=== PATIENT | female | born 1995 | race Caucasian/White ===

== ENCOUNTER 2017-05-13 09:58 | Emergency (ER) | payer OTHER ==
[2017-05-13 10:12] VITALS: RESP 18
--- NOTE | 2017-05-13 10:47 | ED ---
General Adult HPI - General Chief complaint: ENT Stated complaint: SORE THROAT Time Seen by Provider: 05/13/17 10:27 Source: patient, RN notes reviewed Mode of arrival: ambulatory Limitations: no limitations - History of Present Illness Initial comments: Patient 21-year-old female who presents emergency room today with chief complaint of a sore throat 2 weeks. She does admit that symptoms have improved but she still does not have her normal voice. She denies any difficulty swallowing. She denies any other complaints or associated symptoms at this time. Patient denies any recent fever, chills, shortness of breath, chest pain, back pain, abdominal pain, nausea or vomiting, numbness or tingling , dysuria or hematuria, constipation or diarrhea, headaches or visual changes, or any other complaints. - Related Data Previous Rx's Medication Instructions Recorded Azithromycin [Zithromax Z-pack] 0 mg PO DIRECTED #6 tab 05/13/17 Allergies Allergy/AdvReac Type Severity Reaction Status Date / Time amoxicillin Allergy Unknown Verified 05/13/17 10:24 Review of Systems ROS Statement: Those systems with pertinent positive or pertinent negative responses have been documented in the HPI. ROS Other: All systems not noted in ROS Statement are negative. Past Medical History Past Medical History: No Reported History History of Any Multi-Drug Resistant Organisms: MRSA Date of last positivie culture/infection: 2008 MDRO Source:: LEG,ARM,CHEEK Additional Past Surgical History / Comment(s): skull Past Psychological History: No Psychological Hx Reported Smoking Status: Never smoker Past Alcohol Use History: None Reported Past Drug Use History: None Reported General Exam - General Exam Comments Initial Comments: General: The patient is awake and alert, in no distress, and does not appear acutely ill. Eye: Pupils are equal, round and reactive to light, extra-ocular movements are intact. No nystagmus. There is normal conjunctiva bilaterally. No signs of icterus. Ears, nose, mouth and throat: There are moist mucous membranes and no oral lesions. Mild redness to the posterior pharynx. Positive exudate on the left. Neck: The neck is supple, there is no tenderness or JVD. Cardiovascular: There is a regular rate and rhythm. No murmur, rub or gallop is appreciated. Respiratory: Lungs are clear to auscultation, respirations are non-labored, breath sounds are equal. No wheezes, stridor, rales, or rhonchi. Gastrointestinal: Soft, non-distended, non-tender abdomen without masses or organomegaly noted. There is no rebound or guarding present. No CVA tenderness. Bowel sounds are unremarkable. Musculoskeletal: Normal ROM, no tenderness. Strength 5/5. Sensation intact. Pulses equal bilaterally 2+. Neurological: A&O x 3. CN II-XII intact, There are no obvious motor or sensory deficits. Coordination appears grossly intact. Speech is normal. Skin: Skin is warm and dry and no rashes or lesions are noted. Psychiatric: Cooperative, appropriate mood & affect, normal judgment. Limitations: no limitations Course Vital Signs 05/13/17 10:08 Temperature 98.0 F Pulse Rate 70 Respiratory 18 Rate Blood Pressure 141/78 O2 Sat by Pulse 99 Oximetry Medical Decision Making - Medical Decision Making Strep test reviewed and is positive patient will be started on antibiotics of azithromycin due to amoxicillin ALLERGY. - Lab Data Lab Results 05/13/17 Range/Units 10:47 Group A Strep Rapid Positive A (Negative) Disposition Clinical Impression: Strep throat Disposition: HOME SELF-CARE Condition: Good Instructions: Strep Throat (ED) Additional Instructions: Please use medication as discussed. Please follow-up with family doctor in the next 2 days of symptoms have not improved. Please return to emergency room if the symptoms increase or worsen or for any other concerns. Prescriptions: Azithromycin [Zithromax Z-pack] 0 mg PO DIRECTED #6 tab Referrals: None,Stated [REFERRING] - 1-2 days Time of Disposition: 11:35
[2017-05-13 11:41] VITALS: BP 125/66; PULSE 55; TEMP 97.9
== END 2017-05-13 11:36 | disposition home or self-care (01) ==
LOC: EC 09:58
DX: J02.0 Streptococcal pharyngitis (principal); Z88.0 Allergy status to penicillin
CPT/HCPCS: 87430; 99283

== ENCOUNTER 2017-07-12 05:47 | Emergency (ER) | payer OTHER ==
[2017-07-12 06:00] VITALS: PULSE 59; TEMP 98.4
--- NOTE | 2017-07-12 07:25 | ED ---
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 Some sinus congestion no sore throat no earaches no cough. No nausea no vomiting no neck or back pain no blurred vision. She states she normally does not get headaches. Normally does not get sinus infections. MD Complaint: headache, other - Related Data Home Medications Medication Instructions Recorded Confirmed Acetaminophen Tab [Tylenol Tab] 1,000 mg PO Q6HR PRN 07/12/17 07/12/17 Ibuprofen [Motrin] 800 mg PO Q6HR PRN 07/12/17 07/12/17 Previous Rx's Medication Instructions Recorded Doxycycline [Vibramycin] 100 mg PO Q12HR #20 capsule 07/12/17 guaiFENesin [Mucinex] 600 mg PO BID #20 tab.er.12h 07/12/17 Allergies Allergy/AdvReac Type Severity Reaction Status Date / Time amoxicillin AdvReac yeast Verified 07/12/17 07:06 infection Review of Systems ROS Statement: Those systems with pertinent positive or pertinent negative responses have been documented in the HPI. ROS Other: All systems not noted in ROS Statement are negative. 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 Date of last positivie culture/infection: 2008 MDRO Source:: LEG,ARM,CHEEK Additional Past Surgical History / Comment(s): skull Past Psychological History: No Psychological Hx Reported Smoking Status: Never smoker Past Alcohol Use History: Occasional Past Drug Use History: Marijuana General Exam - General Exam Comments Initial Comments: This is a well-developed well-nourished awake alert oriented 3 female Limitations: no limitations General appearance: alert, in no apparent distress Head exam: Present: atraumatic, normocephalic, normal inspection Eye exam: Present: normal appearance, PERRL, EOMI. Absent: scleral icterus, conjunctival injection, periorbital swelling ENT exam: Present: mucous membranes moist, TM's normal bilaterally, other ( Boggy swollen nasal mucosa erythema with no overt drainage. There is tenderness to percussion over the frontal and especially right maxillary sinus.) Neck exam: Present: normal inspection. Absent: tenderness, meningismus, lymphadenopathy Respiratory exam: Present: normal lung sounds bilaterally. Absent: respiratory distress, wheezes, rales, rhonchi, stridor Extremities exam: Present: normal inspection, full ROM, normal capillary refill. Absent: tenderness, pedal edema, joint swelling, calf tenderness Back exam: Present: normal inspection Neurological exam: Present: alert, oriented X3, CN II-XII intact Psychiatric exam: Present: normal affect, normal mood Skin exam: Present: warm, dry, intact, normal color. Absent: rash Course Vital Signs 07/12/17 05:56 Temperature 98.4 F Pulse Rate 59 L Respiratory 20 Rate Blood Pressure 131/80 O2 Sat by Pulse 100 Oximetry Medical Decision Making - Medical Decision Making The clinical presentation is consistent with a acute sinusitis maxillary and frontal. Patient will be placed on appropriate medication. She states she gets a yeast infection with amoxicillin to another medication will be determined. Disposition Clinical Impression: Acute frontal sinusitis, Maxillary sinusitis, acute Disposition: HOME SELF-CARE Condition: Good Instructions: Acute Headache (ED), Sinusitis (ED) Prescriptions: Doxycycline [Vibramycin] 100 mg PO Q12HR #20 capsule guaiFENesin [Mucinex] 600 mg PO BID #20 tab.er.12h Referrals: Liborio Bryan Jr, DO [Primary Care Provider] - 1-2 days
[2017-07-12 07:39] VITALS: BP 138/75; RESP 18
== END 2017-07-12 07:37 | disposition home or self-care (01) ==
LOC: EC 05:47
DX: J01.10 Acute frontal sinusitis, unspecified (principal); J01.00 Acute maxillary sinusitis, unspecified; Z87.790 Personal history of (corrected) congenital malformations of face and neck; Z98.890 Other specified postprocedural states; Z86.14 Personal history of Methicillin resistant Staphylococcus aureus infection; Z88.0 Allergy status to penicillin
CPT/HCPCS: 99283

== ENCOUNTER 2018-12-13 13:47 | Emergency (ER) | payer OTHER ==
[2018-12-13 13:51] VITALS: BP 140/79; PULSE 88; RESP 18; TEMP 98.2
[2018-12-13] MEDS ORDERED: diphenhydrAMINE 50 MG/ML 1 ML VIAL IVP STA (14:56)
[2018-12-13] MEDS ORDERED: KETOROLAC 30 MG/ML 1 ML VIAL IVP STA (14:56)
[2018-12-13] MEDS ORDERED: ONDANSETRON 4 MG/2 ML VIAL IVP STA (14:56)
--- NOTE | 2018-12-13 15:12 | ED ---
Headache HPI - General Chief Complaint: Headache Stated Complaint: headaches Time Seen by Provider: 12/13/18 14:29 Source: RN notes reviewed, old records reviewed Mode of arrival: ambulatory Limitations: no limitations - History of Present Illness Initial Comments: 23-year-old female presents referred in today with persistent headache for 2 weeks. Patient states that she's had a history of brain surgeries in the past. 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 Patient states that they will have persistent headaches she was told to come to the emergency department to rule out cerebral edema. Patient states that she has had no vomiting episodes. Her headache seems to change between bilateral frontal lobe. Patient states that she has had no neck pain. She denies any fever or chills. - Related Data Previous Rx's Medication Instructions Recorded Acetaminophen Tab [Tylenol Tab] 500 mg PO Q6H #20 tablet 12/13/18 Fluticasone Propionate [Flonase 1 spray EA NOSTRIL TID #1 bottle 12/13/18 Allergy Relief] Ibuprofen [Motrin] 600 mg PO Q6HR PRN #20 tab 12/13/18 Allergies Allergy/AdvReac Type Severity Reaction Status Date / Time amoxicillin AdvReac yeast Verified 12/13/18 14:44 infection Review of Systems ROS Statement: Those systems with pertinent positive or pertinent negative responses have been documented in the HPI. ROS Other: All systems not noted in ROS Statement are negative. 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 No significant distress. Limitations: no limitations General appearance: alert, in no apparent distress Head exam: Present: atraumatic, normocephalic, normal inspection Eye exam: Present: normal appearance, PERRL, EOMI. Absent: scleral icterus, conjunctival injection, periorbital swelling ENT exam: Present: normal exam, mucous membranes moist Neck exam: Present: normal inspection. Absent: tenderness, meningismus, lymphadenopathy Respiratory exam: Present: normal lung sounds bilaterally. Absent: respiratory distress, wheezes, rales, rhonchi, stridor Cardiovascular Exam: Present: regular rate, normal rhythm, normal heart sounds. Absent: systolic murmur, diastolic murmur, rubs, gallop, clicks GI/Abdominal exam: Present: soft, normal bowel sounds. Absent: distended, tenderness, guarding, rebound, rigid Extremities exam: Present: normal inspection, full ROM, normal capillary refill. Absent: tenderness, pedal edema, joint swelling, calf tenderness Back exam: Present: normal inspection Neurological exam: Present: alert, oriented X3, CN II-XII intact Psychiatric exam: Present: normal affect, normal mood Skin exam: Present: warm, dry, intact, normal color. Absent: rash Course Vital Signs 12/13/18 13:49 Temperature 98.2 F Pulse Rate 88 Respiratory 18 Rate Blood Pressure 140/79 O2 Sat by Pulse 98 Oximetry Medical Decision Making - Medical Decision Making 23 year old female presents with history of 2 weeks of frontal headaches, worse with light, and concern for acute changes due to history of brain surgery as an infant. She has no meningeal signs, afebrile and appears well. Patient has no neuro deficits. Due to persistent headache, CT completed and negative for any acute changes. Patient felt well after migraine cocktail. Discussed patient can use flonase spray, alternate motrin and tylenol. Discussed she should have close follow up with PCP. - Radiology Data Radiology results: report reviewed No acute fracture dislocation evident C-spine. No acute hemorrhage mass effect or midline shift. There is straightening of lordosis which may be due to a sprain. Ill-definition and superior mediastinum. There appears to be nonenlarged lymph nodes however pronation and sent in for any adenopathies recommended nonemergent CT thorax. Disposition Clinical Impression: Headache Disposition: HOME SELF-CARE Condition: Good Instructions: Acute Headache (ED) Additional Instructions: Patient advised of close follow-up with primary care physician. Return to emergency department if any alarming signs or symptoms occur. Prescriptions: Acetaminophen Tab [Tylenol Tab] 500 mg PO Q6H #20 tablet Fluticasone Propionate [Flonase Allergy Relief] 1 spray EA NOSTRIL TID #1 bottle Ibuprofen [Motrin] 600 mg PO Q6HR PRN #20 tab PRN Reason: Pain Is patient prescribed a controlled substance at d/c from ED?: No Referrals: Liborio Bryan Jr, [Primary Care Provider] - 1-2 days Time of Disposition: 16:29
--- NOTE | 2018-12-13 16:05 | CT ---
EXAMINATION TYPE: CT brain meetaine wo con DATE OF EXAM: 12/13/2018 COMPARISON: NONE HISTORY: Right sided neck pain with headache. no known injury CT DLP: 1483.8 mGycm. Automated Exposure Control for Dose Reduction was Utilized. TECHNIQUE: CT scan of the head and cervical spine are performed without contrast. FINDINGS: There is no acute intracranial hemorrhage, mass effect, or midline shift identified. The ventricles and sulci are within normal limits in size. The globes are intact and the visualized sin uses are clear. Make a cisterna magna is incidentally noted. Cervical spine is visualized in its entirety from C1 through upper thoracic levels and demonstrates s atisfactory alignment without evidence of acute fracture or dislocation. Prevertebral soft tissue ap pears within normal limits. The C1-C2 articulation is unremarkable. Spinal canal is limited on CT a nd could be further evaluated with MRI. There is ill-definition of the superior mediastinum and small lymph nodes appear to be present. Altho ugh no discrete adenopathy is seen confirmation with enhanced CT thorax would be recommended. IMPRESSION: 1. There is no acute fracture or dislocation evident in the cervical spine. 2. No acute intracranial hemorrhage, mass effect, or midline shift is seen. 3. Straightening of usual cervical lordosis may relate to muscular sprain/spasm or patient positionin g. 4. Ill-definition of the superior mediastinum given [id number]. There appears to be nonenlarged ly mph nodes, however full evaluation of the mediastinum for any adenopathy is recommended with nonemerg ent CT thorax with contrast.
== END 2018-12-13 16:40 | disposition home or self-care (01) ==
LOC: EC 13:47
DX: R51 Headache (principal); Z86.14 Personal history of Methicillin resistant Staphylococcus aureus infection; Z88.0 Allergy status to penicillin
CPT/HCPCS: 72125; 70450; 99284; 96374; 96375 ×2; J1200; J2405; J1885

== ENCOUNTER 2019-01-02 11:23 | Emergency (ER) | payer OTHER ==
[2019-01-02 11:47] VITALS: RESP 18
[2019-01-02] MEDS ORDERED: IPRATROPIUM-ALBUTEROL 3 ML NEB INHALATION STA (11:58)
[2019-01-02] MEDS ORDERED: predniSONE 20 MG TAB PO STA (11:58)
--- NOTE | 2019-01-02 12:44 | XR ---
EXAMINATION TYPE: XR chest 2V DATE OF EXAM: 01/02/2019 COMPARISON: Chest x-ray October 09, 1998. HISTORY: Congestion and cough per technologist. Chest pain per order. TECHNIQUE: Frontal and lateral views of the chest are obtained. FINDINGS: There is no focal air space opacity, pleural effusion, or pneumothorax seen. The cardiac silhouette size is within normal limits. The osseous structures are intact. IMPRESSION: No suspicious acute cardiopulmonary process.
--- NOTE | 2019-01-02 12:57 | ED ---
URI HPI - General Chief Complaint: Upper Respiratory Infection Stated Complaint: SOB, cough Time Seen by Provider: 01/02/19 11:51 Source: patient Mode of arrival: ambulatory Limitations: no limitations - History of Present Illness Initial Comments: 22-year-old female denies past medical history presenting today for chief complaint of cough sore throat and chest cold 5 days. Patient states that she has had a cough congestion and fever, that began about 5 days ago, she states her fever has since subsided. She states she feels as though her cold settled in her chest feels tight with deep inspiration. Denies chest pain, dyspnea despite exertion. Patient states that she is not short of breath but just feels tight with deep inspiration, denies tightness and absence of inspiration. Patient states that 2 days ago she lost her voice, she doesn't difficulty swallowing or breathing. Patient does admit to mild wheeze. Patient denies abdominal pain nausea vomiting diarrhea headache dizziness neck stiffness or any other associated symptoms. Upon arrival patient appears well in stable condition. Vital signs within acceptable limits, patient is afebrile appearing well - Related Data Home Medications Medication Instructions Recorded Confirmed D-Methorphan/PE/Acetaminophen 2 tab PO BID PRN 01/02/19 01/02/19 [Vicks Dayquil Liquicaps] guaiFENesin [Mucinex] 600 mg PO Q12HR PRN 01/02/19 01/02/19 Previous Rx's Medication Instructions Recorded Albuterol Inhaler [Ventolin Hfa 1 - 2 puff INHALATION RT-Q6H PRN 7 01/02/19 Inhaler] Days #1 inhaler Allergies Allergy/AdvReac Type Severity Reaction Status Date / Time amoxicillin AdvReac yeast Verified 01/02/19 12:22 infection Review of Systems ROS Statement: Those systems with pertinent positive or pertinent negative responses have been documented in the HPI. ROS Other: All systems not noted in ROS Statement are negative. 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 Eye: Pupils are equal, round and reactive to light, extra-ocular movements are intact. No nystagmus. There is normal conjunctiva bilaterally. No signs of icterus. Ears, nose, mouth and throat: There are moist mucous membranes and no oral lesions. Oropharynx mildly erythematous, no tonsillar enlargement or exudates lesions. No palpable anterior cervical lymphadenopathy Tympanic Membranes are not erythematous. External auditory canals within normal limits. Neck: The neck is supple, there is no tenderness or JVD. Negative Brudzinski and Kernig. Cardiovascular: There is a regular rate and rhythm. No murmur, rub or gallop is appreciated. Respiratory: Respirations are non-labored, breath sounds are equal. Very mild expiratory wheeze and rhonchi. No findings concerning for consolidation. No retractions or abdominal breathing Gastrointestinal: Soft, non-distended, non-tender abdomen without masses or organomegaly noted. There is no rebound or guarding present. No CVA tenderness. Bowel sounds are unremarkable. Musculoskeletal: Normal ROM, no tenderness. Strength 5/5. Sensation intact. Pulses equal bilaterally 2+. Neurological: A&O x 3. CN II-XII intact, There are no obvious motor or sensory deficits. Coordination appears grossly intact. Speech is normal. Skin: Skin is warm and dry and no rashes or lesions are noted. No lower extremity edema Psychiatric: Cooperative, appropriate mood & affect, normal judgment. Limitations: no limitations Course Vital Signs 01/02/19 01/02/19 01/02/19 11:44 12:21 12:30 Temperature 98.2 F Pulse Rate 74 72 70 Respiratory 18 Rate Blood Pressure 114/79 O2 Sat by Pulse 98 Oximetry 01/02/19 13:16 Temperature 97.5 F L Pulse Rate 64 Respiratory 18 Rate Blood Pressure 148/80 O2 Sat by Pulse 99 Oximetry Procedures - Marlin Protocol (Time Out) Nurse: Lucia Colin Medical Decision Making - Medical Decision Making Patient insulin as a positive. Chest x-ray negative for acute process. Patient given DuoNeb treatment, stated improvement of symptoms. Patient symptoms have been ongoing greater than 72 hours, at this time do not feel Tamiflu is indicated. Patient afebrile. Patient was educated on symptomatic treatment. Patient with his charge with albuterol inhaler for wheezing. Patient was instructed to follow-up with primary care provider in the next 2-3 days. Patient is agreeable plan and discharged. Patient discharged in stable condition appearing well to questions at this time. Return parameters were discussed the patient verbalizes understanding. Patient tolerated by mouth intake and appears hydrated on exam. Case discussed with attending provider Dr. pham briefly prior to discharge of patient. - Lab Data Lab Results 01/02/19 01/02/19 Range/Units 11:58 11:58 Influenza Type A RNA Detected H (Not Detectd) Influenza Type B (PCR) Not Detected (Not Detectd) Group A Strep Rapid Negative (Negative) Disposition Clinical Impression: Influenza A Disposition: HOME SELF-CARE Condition: Good Instructions (If sedation given, give patient instructions): Influenza (ED) Additional Instructions: Please use medication as discussed. Please follow-up with family doctor in the next 2 days. Please return to emergency room if the symptoms increase or worsen or for any other concerns, as discussed. Prescriptions: Albuterol Inhaler [Ventolin Hfa Inhaler] 1 - 2 puff INHALATION RT-Q6H PRN 7 Days #1 inhaler PRN Reason: Wheezing Is patient prescribed a controlled substance at d/c from ED?: No Referrals: Liborio Bryan Jr, DO [Primary Care Provider] - 1-2 days Time of Disposition: 12:57
[2019-01-02 13:17] VITALS: BP 148/80; PULSE 64; TEMP 97.5
== END 2019-01-02 13:18 | disposition home or self-care (01) ==
LOC: EC 11:23
DX: J10.1 Influenza due to other identified influenza virus with other respiratory manifestations (principal); Z88.0 Allergy status to penicillin
CPT/HCPCS: 94640; 87081; 87430; 87502; 71046; 99284; J7512

== ENCOUNTER 2019-07-13 11:14 | Emergency (ER) | payer OTHER ==
[2019-07-13 11:28] VITALS: BP 121/77; PULSE 86; RESP 20; TEMP 98
[2019-07-13] MEDS ORDERED: PROPARACAINE 0.5% OPHTH DROPS 15 ML BTL BOTH EYES STA (11:28)
[2019-07-13] MEDS ORDERED: ERYTHROMYCIN 5 MG/GM OPHTH OINT 3.5 GM TUBE RIGHT EYE STA (11:44)
[2019-07-13] MEDS ORDERED: ERYTHROMYCIN 5 MG/GM OPHTH OINT (PED) 1 GM TUBE RIGHT EYE STA (11:55)
--- NOTE | 2019-07-13 12:05 | ED ---
General Adult HPI - General Chief complaint: Eye Problems Stated complaint: rt eye irritation Time Seen by Provider: 07/13/19 11:27 Source: patient, RN notes reviewed Mode of arrival: ambulatory Limitations: no limitations - History of Present Illness Initial comments: 23-year-old female presents to the emergency department for a chief complaint of right eye irritation 2 days. States her eye feels itchy and looks red. States that when she wakes up in the morning it is crusted and swollen. States she is having some clear drainage from the right eye as well. Denies visual changes. Denies any pain surrounding the eye or pain with movement of the eye. Denies any injuries to the eye. Denies any fevers or chills. Patient has no other complaints at this time including shortness of breath, chest pain, abdominal pain, nausea or vomiting, headache, or visual changes. - Related Data Previous Rx's Medication Instructions Recorded Cephalexin [Keflex] 500 mg PO Q6HR 10 Days cap 07/13/19 Allergies Allergy/AdvReac Type Severity Reaction Status Date / Time amoxicillin AdvReac yeast Verified 07/13/19 11:51 infection Review of Systems ROS Statement: Those systems with pertinent positive or pertinent negative responses have been documented in the HPI. ROS Other: All systems not noted in ROS Statement are negative. 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 Date of last positivie culture/infection: 2008 MDRO Source:: LEG,ARM,CHEEK Additional Past Surgical History / Comment(s): skull Past Psychological History: No Psychological Hx Reported Smoking Status: Never smoker Past Alcohol Use History: Occasional Past Drug Use History: Marijuana General Exam Limitations: no limitations General appearance: alert, in no apparent distress Head exam: Present: atraumatic, normocephalic, normal inspection Eye exam: Present: PERRL, EOMI, conjunctival injection (She has erythema noted of the right conjunctiva with limbic sparing), periorbital swelling (Minimal edema noted of the right upper eyelid. This is non-erythematous, soft, nontender. No evidence of a cellulitis.). Absent: normal appearance, scleral icterus, periorbital tenderness Expanded Eyelids: Normal Inspection: Left, Swelling: Right (minimal, nontender, non erythematous) Pupils: Regular, Round: Bilateral Sclera/Conjunctival: Injection: Right (sparing limbus) Visual acuity (R) = 20/: 15 Visual acuity (L) = 20/: 30 With correction: No IOP (R) in mmH IOP (L) in mmH IOP measured with: Tonopen ENT exam: Present: normal exam, mucous membranes moist Neck exam: Present: normal inspection, full ROM. Absent: tenderness, meningismus, lymphadenopathy Respiratory exam: Present: normal lung sounds bilaterally. Absent: respiratory distress, wheezes, rales, rhonchi, stridor Cardiovascular Exam: Present: regular rate, normal rhythm, normal heart sounds. Absent: systolic murmur, diastolic murmur, rubs, gallop, clicks Neurological exam: Present: alert, oriented X3, CN II-XII intact Psychiatric exam: Present: normal affect, normal mood Course Vital Signs 07/13/19 11:26 Temperature 98.0 F Pulse Rate 86 Respiratory 20 Rate Blood Pressure 121/77 O2 Sat by Pulse 99 Oximetry Medical Decision Making - Medical Decision Making 23-year-old female presents to the emergency department for chief complaint of right eye patient. Patient has had an itchy right eye with some swelling. Sates this worsens when she wakes up. States she has had some crusting of the right eye in the morning. States she has had clear drainage from the right eye. Denies any visual changes. Eye exam patient has erythema noted of the conjunctiva of the right eye with limbic sparing. Minimal edema noted to the upper eyelid without any tenderness or erythema. Eyelid is soft to palpation. This is likely reactive swelling, and unlikely to be cellulitis. No pain with movement of the eye, no concern for an orbital cellulitis. The eye was anesthetized with proparacaine, completely relieve symptoms. It was then vi sualized with 4 seen in a Will lamp, no abrasions evident, negative Mimi sign. At this time patient likely has a conjunctivitis. Treated with erythromycin ointment, and no history of contact use. However patient will be given Keflex given some mild swelling to cover for any early periorbital cellulitis. Discussed follow-up with ophthalmology and primary care. Discussed returning if she has any worsening symptoms which were communicated in depth with patient. She was given the ointment here in the ER, prescription given for oral antibiotic. Disposition Clinical Impression: Conjunctivitis Disposition: HOME SELF-CARE Condition: Good Instructions (If sedation given, give patient instructions): Conjunctivitis (ED) Additional Instructions: Please apply antibiotic ointment 4 times per day for 7 days. Follow-up with primary care and ophthalmology in one to 2 days. If you develop any worsening symptoms such as fevers, pain with movement of the eye, worsening swelling or any other concerning features then return to the emergency department immediately. Prescriptions: Cephalexin [Keflex] 500 mg PO Q6HR 10 Days cap Is patient prescribed a controlled substance at d/c from ED?: No Referrals: Liborio Bryan Jr, DO [Primary Care Provider] - 1-2 days Roderick Aquino MD [STAFF PHYSICIAN] - 1-2 days Time of Disposition: 12:02
== END 2019-07-13 12:14 | disposition home or self-care (01) ==
LOC: EC 11:14
DX: H10.9 Unspecified conjunctivitis (principal); L03.213 Periorbital cellulitis; Z88.0 Allergy status to penicillin; Z86.14 Personal history of Methicillin resistant Staphylococcus aureus infection
CPT/HCPCS: 99283

== ENCOUNTER 2019-12-01 06:04 | Emergency (ER) | payer OTHER ==
[2019-12-01 06:12] VITALS: BP 135/84; PULSE 66; RESP 20; TEMP 97.9
[2019-12-01] MEDS ORDERED: TOBRAMYCIN 0.3% OPHTH DROPS 5 ML BTL BOTH EYES STA (06:18)
--- NOTE | 2019-12-01 06:29 | ED ---
Eye Problem HPI - General Chief complaint: Eye Problems Stated complaint: Poss Conjunctivitis Time Seen by Provider: 12/01/19 06:17 Source: patient, family, RN notes reviewed, old records reviewed Mode of arrival: ambulatory Limitations: no limitations - History of Present Illness Initial comments: Patient is a 23-year-old female, presents emergency department today for evaluation for concern for bilateral conjunctival drainage, irritation for the past 2 days. Patient reports it started after she slipped on a friend's car, and she reportedly noted that the friend changed her baby's diaper on the clot she was sleeping. Patient states that she does not wear contacts or glasses. Denies any significant visual changes. - Related Data Previous Rx's Medication Instructions Recorded Cephalexin [Keflex] 500 mg PO Q6HR 10 Days cap 07/13/19 Tobramycin 0.3% Ophth Soln [Tobrex 1 - 2 drop BOTH EYES Q4H #1 bottle 12/01/19 0.3% Ophth Soln] Allergies Allergy/AdvReac Type Severity Reaction Status Date / Time amoxicillin AdvReac yeast Verified 12/01/19 06:12 infection Review of Systems ROS Statement: Those systems with pertinent positive or pertinent negative responses have been documented in the HPI. ROS Other: All systems not noted in ROS Statement are negative. 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 Some purulent crusting is noted around eyelashes.). Absent: scleral icterus, periorbital swelling ENT exam: Present: normal exam, mucous membranes moist Neck exam: Present: normal inspection. Absent: tenderness, meningismus, lymphadenopathy Respiratory exam: Present: normal lung sounds bilaterally. Absent: respiratory distress, wheezes, rales, rhonchi, stridor Cardiovascular Exam: Present: regular rate, normal rhythm, normal heart sounds. Absent: systolic murmur, diastolic murmur, rubs, gallop, clicks Skin exam: Present: warm, dry, intact, normal color. Absent: rash Course Vital Signs 12/01/19 06:08 Temperature 97.9 F Pulse Rate 66 Respiratory 20 Rate Blood Pressure 135/84 O2 Sat by Pulse 99 Oximetry Medical Decision Making - Medical Decision Making Referrals Presents Emergency Department Today for Temperature Conjunctivitis. Patient Does Have Some Bilateral Conjunctival Injection, Crusting Drainage around the Eye. She Has No Visual Changes. Patient Has No Signs of Corneal Abrasion or Ulceration. This Time Patient Will Be Placed on Tobrex Drops First Her for Conjunctivitis and Advised Close Follow-Up with Primary Care Doctor Ophthalmology If Symptoms Persist. SENSORY AND TO RETURN PARAMETERS WERE DISCUSSED. Disposition Clinical Impression: Conjunctivitis Disposition: HOME SELF-CARE Condition: Good Instructions (If sedation given, give patient instructions): Conjunctivitis (ED) Additional Instructions: Patient advised to use the eyedrops every 4 hours for the first 2 days, then switch to 4 times a day for the remainder of the week. Patient should follow-up with ophthalmology if symptoms continue to persist. Prescriptions: Tobramycin 0.3% Ophth Soln [Tobrex 0.3% Ophth Soln] 1 - 2 drop BOTH EYES Q4H #1 bottle Is patient prescribed a controlled substance at d/c from ED?: No Referrals: Liborio Bryan Jr, DO [Primary Care Provider] - 1-2 days Time of Disposition: 06:28
== END 2019-12-01 06:32 | disposition home or self-care (01) ==
LOC: EC 06:04
DX: H10.9 Unspecified conjunctivitis (principal); Z88.0 Allergy status to penicillin; Z86.14 Personal history of Methicillin resistant Staphylococcus aureus infection; Z87.728 Personal history of other specified (corrected) congenital malformations of nervous system and sense organs; W18.40XA Slipping, tripping and stumbling without falling, unspecified, initial encounter
CPT/HCPCS: 99283

== ENCOUNTER 2020-01-31 05:55 | Emergency (ER) | payer OTHER ==
[2020-01-31 06:06] VITALS: BP 125/84; PULSE 90; RESP 18; TEMP 99.4
--- NOTE | 2020-01-31 06:16 | ED ---
URI HPI - General Chief Complaint: Upper Respiratory Infection Stated Complaint: chest pain Time Seen by Provider: 01/31/20 06:07 Source: patient, RN notes reviewed Mode of arrival: ambulatory Limitations: no limitations - History of Present Illness Initial Comments: 24-year-old female presents emergency Department chief complaint of fever cough congestion body aches. Patient states symptoms started Da 5 days ago. Patient's niece is positive with influenza B. Patient states that she has a slightly productive cough and nasal congestion, sore throat and ear pain and body aches. Patient states that she's been taking [id number] cough and cold medications she does admit to fever. Patient has tried some [id number]-[id number] cough and cold medications no relief. Patient had intermittent fevers. - Related Data Previous Rx's Medication Instructions Recorded Cephalexin [Keflex] 500 mg PO Q6HR 10 Days cap 07/13/19 Tobramycin 0.3% Ophth Soln [Tobrex 1 - 2 drop BOTH EYES Q4H #1 bottle 12/01/19 0.3% Ophth Soln] Azithromycin [Zithromax Z-pack] 0 mg PO DIRECTED #1 pack 01/31/20 Allergies Allergy/AdvReac Type Severity Reaction Status Date / Time amoxicillin AdvReac yeast Verified 01/31/20 06:06 infection Review of Systems ROS Statement: Those systems with pertinent positive or pertinent negative responses have been documented in the HPI. ROS Other: All systems not noted in ROS Statement are negative. 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 Absent: scleral icterus, conjunctival injection, periorbital swelling ENT exam: Present: normal exam, normal oropharynx, mucous membranes moist, TM's normal bilaterally Neck exam: Present: normal inspection, full ROM. Absent: tenderness, meningismus, lymphadenopathy Respiratory exam: Present: normal lung sounds bilaterally. Absent: respiratory distress, wheezes, rales, rhonchi, stridor Cardiovascular Exam: Present: regular rate, normal rhythm, normal heart sounds. Absent: systolic murmur, diastolic murmur, rubs, gallop, clicks Neurological exam: Present: alert Skin exam: Present: warm, dry, intact, normal color. Absent: rash Course Vital Signs 01/31/20 06:01 Temperature 99.4 F Pulse Rate 90 Respiratory 18 Rate Blood Pressure 125/84 O2 Sat by Pulse 97 Oximetry Medical Decision Making - Medical Decision Making 24-year-old female presents emergency department for fever cough congestion. Patient's influenza B positive. Patient also has evidence of right upper lobe pneumonia. Patient was started on azithromycin she is advised that she needs to have recheck within the next 48 hours return for any change symptoms. Patient agrees this plan return parameters discussed. - Lab Data Lab Results 01/31/20 Range/Units 06:15 Influenza Type A RNA Not Detected (Not Detectd) Influenza Type B (PCR) Detected H (Not Detectd) Disposition Clinical Impression: Influenza, Pneumonia Disposition: HOME SELF-CARE Condition: Stable Instructions (If sedation given, give patient instructions): Pneumonia (ED), Influenza (ED) Additional Instructions: Please return to the Emergency Department if symptoms worsen or any other concerns. Prescriptions: Azithromycin [Zithromax Z-pack] 0 mg PO DIRECTED #1 pack Is patient prescribed a controlled substance at d/c from ED?: No Referrals: None,Stated [Primary Care Provider] - 1-2 days Time of Disposition: 06:40
--- NOTE | 2020-01-31 06:34 | XR ---
EXAMINATION TYPE: XR chest 2V DATE OF EXAM: 01/31/2020 COMPARISON: 01/02/2019 HISTORY: Cough TECHNIQUE: FINDINGS: There is a 4 cm patch of infiltrate and atelectasis right midlung. The other lung shaikh ar e clear. Heart and mediastinum are normal. There are no hilar masses. IMPRESSION: There is new focal infiltrate and atelectasis right upper lobe compared to old exam. Norm al heart.
== END 2020-01-31 07:01 | disposition home or self-care (01) ==
LOC: EC 05:55
DX: J10.00 Influenza due to other identified influenza virus with unspecified type of pneumonia (principal); Z86.14 Personal history of Methicillin resistant Staphylococcus aureus infection; Z88.0 Allergy status to penicillin
CPT/HCPCS: 71046; 87502; 99283

== ENCOUNTER 2020-08-10 15:22 | Emergency (ER) | payer OTHER ==
[2020-08-10 15:45] VITALS: BP 123/80; PULSE 74; RESP 16; TEMP 98.3
--- NOTE | 2020-08-10 15:55 | ED ---
General Adult HPI - General Chief complaint: Recheck/Abnormal Lab/Rx Stated complaint: Wanting COVID test Time Seen by Provider: 08/10/20 15:47 Source: patient, RN notes reviewed, old records reviewed Mode of arrival: ambulatory Limitations: no limitations - History of Present Illness Initial comments: 24-year-old female presents emergency department today for evaluation requesting and Covid 19 swab. She states she has no symptoms of Cob[place] 19 and shortness of breath fever chills body aches or sore throat. She denies any abdominal pain changes in urination or stools. 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 Patient states that she's had no previous testing. She does not work in healthcare clinic. She has had no known exposure to Covid 19 contacts. - Related Data Previous Rx's Medication Instructions Recorded Cephalexin [Keflex] 500 mg PO Q6HR 10 Days cap 07/13/19 Tobramycin 0.3% Ophth Soln [Tobrex 1 - 2 drop BOTH EYES Q4H #1 bottle 12/01/19 0.3% Ophth Soln] Azithromycin [Zithromax Z-pack] 0 mg PO DIRECTED #1 pack 01/31/20 Allergies Allergy/AdvReac Type Severity Reaction Status Date / Time amoxicillin AdvReac yeast Verified 08/10/20 15:45 infection Review of Systems ROS Statement: Those systems with pertinent positive or pertinent negative responses have been documented in the HPI. ROS Other: All systems not noted in ROS Statement are negative. 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 Alert and oriented 3. Patient appears in no significant distress. Limitations: no limitations General appearance: alert, in no apparent distress Head exam: Present: atraumatic, normocephalic, normal inspection Eye exam: Present: normal appearance, PERRL, EOMI. Absent: scleral icterus, conjunctival injection, periorbital swelling ENT exam: Present: normal oropharynx Neck exam: Present: normal inspection Respiratory exam: Present: normal lung sounds bilaterally Cardiovascular Exam: Present: regular rate, normal rhythm, normal heart sounds. 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 Patient states she has no symptoms at this time. He does not work in healthcare setting. Patient is given Coban 19 swab. Discussed the results may result in one to 3 days. Advised follow-up if there is any symptoms. Disposition Clinical Impression: Encounter for screening laboratory testing for COVID-19 virus Disposition: HOME SELF-CARE Condition: Good Additional Instructions: Results further close follow-up should be available in the next 1-3 days. Patient advised to return to the ER if there is any alarming signs or symptoms occur. Is patient prescribed a controlled substance at d/c from ED?: No Referrals: Liborio Byran Jr, DO [Primary Care Provider] - 1-2 days Time of Disposition: 15:53
== END 2020-08-10 16:05 | disposition home or self-care (01) ==
LOC: EC 15:22
DX: Z03.818 Encounter for observation for suspected exposure to other biological agents ruled out (principal); Z88.0 Allergy status to penicillin; Z86.73 Personal history of transient ischemic attack (TIA), and cerebral infarction without residual deficits
CPT/HCPCS: 99284; U0003

== ENCOUNTER 2021-03-08 15:59 | Emergency (ER) | payer OTHER ==
[2021-03-08 16:32] VITALS: BP 140/80; PULSE 73; RESP 18; TEMP 98.3
--- NOTE | 2021-03-08 16:33 | ED ---
General Adult HPI - General Stated complaint: Cold, possible covid Source: RN notes reviewed - History of Present Illness Initial comments: 25-year-old female presents to the emergency room a coronavirus test. Patient states that she has cold symptoms and wants to check and see if it is coronavirus. States she has had a stuffy nose. She also has a tickle in her throat. She also had diarrhea today. Symptoms started yesterday. No fevers. No shortness of breath. No chest pain.Patient has no other complaints at this time including shortness of breath, chest pain, abdominal pain, nausea or vomiting, headache, or visual changes. - Related Data Previous Rx's Medication Instructions Recorded Cephalexin [Keflex] 500 mg PO Q6HR 10 Days cap 07/13/19 Tobramycin 0.3% Ophth Soln [Tobrex 1 - 2 drop BOTH EYES Q4H #1 bottle 12/01/19 0.3% Ophth Soln] Azithromycin [Zithromax Z-pack (6 0 mg PO DIRECTED #1 pack 01/31/20 tabs)] Allergies Allergy/AdvReac Type Severity Reaction Status Date / Time amoxicillin AdvReac yeast Verified 03/08/21 16:32 infection purple dye Allergy Rash/Hives Uncoded 03/08/21 16:33 Review of Systems ROS Statement: Those systems with pertinent positive or pertinent negative responses have been documented in the HPI. ROS Other: All systems not noted in ROS Statement are negative. 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 Absent: scleral icterus, conjunctival injection, periorbital swelling ENT exam: Present: normal exam, normal oropharynx (Uvula midline, no tonsillar exudates bilaterally), mucous membranes moist Neck exam: Present: normal inspection, full ROM. Absent: tenderness Respiratory exam: Present: normal lung sounds bilaterally. Absent: respiratory distress, wheezes Cardiovascular Exam: Present: regular rate, normal rhythm, normal heart sounds GI/Abdominal exam: Present: soft, normal bowel sounds. Absent: distended, tenderness, guarding, rebound, rigid Course Vital Signs 03/08/21 16:29 Temperature 98.3 F Pulse Rate 73 Respiratory 18 Rate Blood Pressure 140/80 O2 Sat by Pulse 99 Oximetry Medical Decision Making - Medical Decision Making Vitals are stable. Patient is 99% on room air. HPI and physical exam as documented. No respirator distress. Patient is well-appearing. Coronavirus is detected. I did have a lengthy conversation with patient about antibody infusion. We discussed decreases morbidity and mortality as well as hospitalizations. We also discussed the emergency authorization aspect of this medication as well as possible side effects. At this time patient declines. States she does not agree feel cutter beginning this. Patient is requesting discharge. I did recommend to return for any worsening symptoms. - Lab Data Lab Results 03/08/21 Range/Units 16:38 Coronavirus (PCR) Detected A (Not Detectd) Disposition Clinical Impression: COVID-19 Disposition: HOME SELF-CARE Condition: Good Instructions (If sedation given, give patient instructions): Coronavirus Disease 2019 (COVID-19) Additional Instructions: Please take Motrin and Tylenol for pain or fever. Take [id number] cold and flu medications. Follow-up with your doctor in one to 2 days. Return to the emergency room for any worsening symptoms or if you start to develop shortness of breath. Is patient prescribed a controlled substance at d/c from ED?: No Referrals: Liborio Bryan Jr, DO [Primary Care Provider] - 1-2 days Time of Disposition: 17:13
== END 2021-03-08 17:33 | disposition home or self-care (01) ==
LOC: EC 15:59
DX: U07.1 COVID-19 (principal); F12.90 Cannabis use, unspecified, uncomplicated
CPT/HCPCS: 87635; 99284

== ENCOUNTER 2021-09-09 23:26 | Emergency (ER) | payer OTHER ==
[2021-09-09 23:48] VITALS: RESP 18; TEMP 98
[2021-09-10] MEDS ORDERED: diazePAM 5 MG TAB PO STA (00:12)
[2021-09-10] MEDS ORDERED: MORPHINE SULFATE 2 MG/ML SYRINGE IM STA ×2 (00:12→01:50)
--- NOTE | 2021-09-10 01:00 | ED ---
Back Pain HPI - General Chief Complaint: Back Pain/Injury Stated Complaint: Back Pain Time Seen by Provider: 09/09/21 23:41 Source: patient, EMS, RN notes reviewed Mode of arrival: EMS Limitations: no limitations - History of Present Illness Initial Comments: Patient is a 25-year-old female presenting to emergency Department via EMS with complaints of right-sided sciatica pain that increased tonight. Patient states she's been dealing with the sciatica discomfort for the past 1-2 months. Tonight she was stretching and made the pain worse. She states she is unable to get comfortable. She did not take anything for the pain. She did receive 15 mg of Toradol the EMS prior to arrival. She states when she is laying flat is 1 feels the best. She has not seen her doctor or orthopedics for this. She denies any history of back injuries or surgeries. She denies any numbness and tingling, no bowel or bladder incontinence, no saddle paresthesias. She states she does have pain running down her right leg. She is able to ambulate. She denies being . She has no further complaints. - Related Data Previous Rx's Medication Instructions Recorded Cephalexin [Keflex] 500 mg PO Q6HR 10 Days cap 07/13/19 Tobramycin 0.3% Ophth Soln [Tobrex 1 - 2 drop BOTH EYES Q4H #1 bottle 12/01/19 0.3% Ophth Soln] Azithromycin [Zithromax Z-pack (6 0 mg PO DIRECTED #1 pack 01/31/20 tabs)] Cyclobenzaprine [Flexeril] 5 mg PO TID PRN #15 tablet 09/10/21 predniSONE [Deltasone] 20 mg PO BID 5 Days #10 tab 09/10/21 Allergies Allergy/AdvReac Type Severity Reaction Status Date / Time amoxicillin AdvReac yeast Verified 03/08/21 16:32 infection purple dye Allergy Rash/Hives Uncoded 03/08/21 16:33 Review of Systems ROS Statement: Those systems with pertinent positive or pertinent negative responses have been documented in the HPI. ROS Other: All systems not noted in ROS Statement are negative. 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 Patient is nontoxic and in mild distress. HEAD: Atraumatic, normocephalic. EYES: Pupils equal round and reactive to light, extraocular movements intact, sclera anicteric, conjunctiva are normal. Eyelids were unremarkable. ENT: Moist mucous membranes. NECK: Normal range of motion, supple without lymphadenopathy or JVD. LUNGS: Unlabored respirations. Breath sounds clear to auscultation bilaterally and equal. No wheezes rales or rhonchi. HEART: Regular rate and rhythm without murmurs, rubs or gallops. ABDOMEN: Soft, nontender, normoactive bowel sounds. No guarding, no rebound. No masses appreciated. MUSCULOSKELETAL: Normal extremities with adequate strength and normal range of motion, no pitting or edema. No clubbing or cyanosis. Tender with palpation of the right lower back, right gluteal. Increased pain with straight leg raise. NEUROLOGICAL: Patient is alert and oriented x 3. Normal speech, normal gait. PSYCH: Normal mood, normal affect. SKIN: Warm, Dry, normal turgor, no rashes or lesions noted. Limitations: no limitations Course Vital Signs 09/09/21 23:43 Temperature 98.0 F Pulse Rate 61 Respiratory 18 Rate Blood Pressure 134/82 O2 Sat by Pulse 99 Oximetry Medical Decision Making - Medical Decision Making Patient is a 25-year-old female presenting here via EMS with complaints of right-sided sciatica pain. Been ongoing for 1-2 months. No alarming symptoms on exam, his exam is consistent with right-sided sciatica pain. She was given pain control here in the ER, does report some mild improvement. I recommended following up with orthopedic. I will give her a short course of muscle relaxers and trial of steroids. She is agreeable to this. Return parameters were discussed with her and she verbalized understanding. Disposition Clinical Impression: Right sciatic nerve pain Disposition: HOME SELF-CARE Condition: Stable Instructions (If sedation given, give patient instructions): Sciatica (ED) Additional Instructions: Please return to the Emergency Department if symptoms worsen or any other concerns. Trial of muscle relaxers/steroids for increasing pain. Recommended Tylenol for any discomfort. Heat and/or Ice. If symptoms persist, recommend following up with orthopedic doctor as discussed. Prescriptions: predniSONE [Deltasone] 20 mg PO BID 5 Days #10 tab Cyclobenzaprine [Flexeril] 5 mg PO TID PRN #15 tablet PRN Reason: Muscle Spasm Is patient prescribed a controlled substance at d/c from ED?: No Referrals: Liborio Bryan Jr, DO [Primary Care Provider] - 1-2 days Jarvis Noble MD [STAFF PHYSICIAN] - 1-2 days Time of Disposition: 01:00
[2021-09-10 02:06] VITALS: BP 142/85; PULSE 65
== END 2021-09-10 02:06 | disposition home or self-care (01) ==
LOC: EC 23:26
DX: M54.41 Lumbago with sciatica, right side (principal); F12.90 Cannabis use, unspecified, uncomplicated; Z88.0 Allergy status to penicillin
CPT/HCPCS: 99283 ×2; 96372 ×3; J2270

== ENCOUNTER → 2022-09-03 | Outpatient (CLI) | payer OTHER ==
--- NOTE | 2022-09-03 14:12 | USB ---
Reason for Exam: Clinical finding. Technique: Method: Whole Breast Handheld. Findings: The whole breast of the right breast, the axilla of the right breast and the retroareolar of the right breast were scanned. A complete US of all four quadrants of the right breast and retro-areolar region were reviewed. There is a well circumscribed mass blends in with the surrounding breast tissue at 9:00 8 cm from the nipple. This measures 2.2 x 0.9 x 2.1 cm. No internal color flow identified. This is most consistent with a lipoma. Additional benign appearing lymph node at 10:00 12 cm from the nipple with central fatty hilum. Overall Assessment: Benign, BI-RAD 2 Management: Screening Mammogram of both breasts at age 39. A clinical breast exam by your physician is recommended on an annual basis and results should be correlated with mammographic findings. Electronically signed and approved by: Jay Murry D.O.
== END | disposition home or self-care (01) ==
LOC: RADMAMWWP 12:58
PROVIDERS: ATTEND Family Medicine
DX: N63.10 Unspecified lump in the right breast, unspecified quadrant (principal)

== ENCOUNTER 2023-06-07 13:53 | Emergency (ER) | payer OTHER ==
[2023-06-07 15:08] LABS: Basophils % (A) 0 %; Eosinophils # (A) 0.1 k/uL (0-0.7); Eosinophils % (A) 1 %; HCT 36.7 % (34.0-46.0); HGB 12.5 gm/dL (11.4-16.0); Lymphocytes # (A) 1.9 k/uL (1.0-4.8); Lymphocytes % (A) 22 %; MCH 29.1 pg (25.0-35.0); MCHC 34.1 g/dL (31.0-37.0); MCV 85.4 fL (80.0-100.0); Mean Platelet Volume 6.8; Monocytes # (A) 0.5 k/uL (0-1.0); Monocytes % (A) 5 %; Neutrophils % (A) 70 %; Platelet Count 355 k/uL (150-450); RBC 4.29 m/uL (3.80-5.40); RDW 13.5 % (11.5-15.5); WBC 8.5 k/uL (3.8-10.6)
[2023-06-07 15:17] LABS: ALT 32 U/L (4-34); AST 36 U/L (14-36); African American GFR (CKD) >90 (>60 ml/min/1.73 sqM); Albumin 4.3 g/dL (3.5-5.0); Alkaline Phosphatase 70 U/L (38-126); Anion Gap 8 mmol/L; Blood Urea Nitrogen 7 mg/dL (7-17); Calcium 9.5 mg/dL (8.4-10.2); Carbon Dioxide 20 mmol/L (22-30); Chloride 110 mmol/L (98-107); Glucose 95 mg/dL (74-99); Non-African American GFR(CKD) >90 (>60 ml/min/1.73 sqM); Potassium 3.5 mmol/L (3.5-5.1); Sodium 138 mmol/L (137-145); Total Bilirubin 0.6 mg/dL (0.2-1.3)
--- NOTE | 2023-06-07 15:30 | XR ---
EXAMINATION TYPE: XR chest 2V DATE OF EXAM: 06/07/2023 COMPARISON: 01/31/2020 HISTORY: Chest pain TECHNIQUE: Frontal and lateral views of the chest are obtained. FINDINGS: There is no focal air space opacity. No evidence for pneumothorax. No pleural effusion. The cardiac silhouette size is within normal limits. The osseous structures are grossly intact. IMPRESSION: 1. No acute cardiopulmonary process.
--- NOTE | 2023-06-07 15:31 | XR ---
EXAMINATION TYPE: XR shoulder complete RT DATE OF EXAM: 06/07/2023 CLINICAL HISTORY: pain TECHNIQUE: Three views of the right shoulder are obtained. COMPARISON: None FINDINGS: There is no acute fracture/dislocation evident. The acromioclavicular and glenohumeral milan int spaces appear within normal limits. The visualized ribs are intact and unremarkable. IMPRESSION: 1. There is no acute fracture or dislocation. ICD 10 NO FRACTURE, INITIAL EVALUATION
[2023-06-07] MEDS ORDERED: SODIUM CHLORIDE 0.9% 500 ML 500 ML IV STA (21:38)
[2023-06-07] MEDS ORDERED: LORazepam 2 MG/ML INJ IV STA (21:38)
--- NOTE | 2023-06-07 21:39 | ED ---
SOB HPI - General Chief Complaint: Shortness of Breath Stated Complaint: Chest tightness,sob Time Seen by Provider: 06/07/23 21:06 Source: patient Mode of arrival: ambulatory Limitations: no limitations - History of Present Illness Initial Comments: This patient is a 27-year-old woman presenting to have evaluation of her shortness of breath. The patient noted that she had used an energy drink while she was at work as she was feeling fatigued. Shortly after that she felt like she could not catch her breath and she had some palpitations though those have resolved. The patient denies chest pain, diaphoresis, nausea or vomiting. No fever or chills. No productive cough. No leg pain or swelling MD Complaint: shortness of breath Onset/Timin -: hour(s) Severity: mild Severity scale (1-10): 0 Consistency: now resolved Improves With: nothing Worsens With: nothing Associated Symptoms: denies other symptoms Treatments Prior to Arrival: none - Related Data Home Medications Medication Instructions Recorded Confirmed Glucosamine/Chondro Silvestre A [Cosamin 1 tab PO BID 06/07/23 06/07/23 Ds Tablet] Allergies Allergy/AdvReac Type Severity Reaction Status Date / Time amoxicillin AdvReac yeast Verified 06/07/23 21:21 infection purple dye Allergy Rash/Hives Uncoded 06/07/23 21:21 Review of Systems ROS Statement: Those systems with pertinent positive or pertinent negative responses have been documented in the HPI. ROS Other: All systems not noted in ROS Statement are negative. Constitutional: Denies: fever, chills, weakness ENT: Denies: congestion Respiratory: Reports: dyspnea. Denies: cough, wheezes, hemoptysis Cardiovascular: Reports: palpitations. 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 Absent: scleral icterus, conjunctival injection ENT exam: Present: mucous membranes dry Neck exam: Present: normal inspection Respiratory exam: Present: normal lung sounds bilaterally. Absent: respiratory distress, wheezes, rales, rhonchi, stridor Cardiovascular Exam: Present: regular rate, normal rhythm, normal heart sounds. Absent: systolic murmur, diastolic murmur, rubs, gallop GI/Abdominal exam: Present: soft. Absent: distended, tenderness, guarding, rebound, rigid, mass Extremities exam: Present: normal inspection, normal capillary refill. Absent: pedal edema, calf tenderness Back exam: Present: normal inspection. Absent: CVA tenderness (R), CVA tenderness (L) Neurological exam: Present: alert Skin exam: Present: warm, dry, intact, normal color. Absent: rash Course Vital Signs 06/07/23 06/07/23 06/07/23 14:10 18:37 21:00 Temperature 98.6 F 97.7 F Pulse Rate 77 74 83 Respiratory 22 18 20 Rate Blood Pressure 139/84 129/87 145/93 O2 Sat by Pulse 100 100 100 Oximetry 06/07/23 06/07/23 21:41 22:24 Temperature 98.0 F Pulse Rate 75 Respiratory 20 18 Rate Blood Pressure 138/76 O2 Sat by Pulse 99 Oximetry Medical Decision Making - Medical Decision Making The patient had chest x-ray which I interpreted as being negative for acute infiltrate, congestive heart failure, pneumothorax The patient had a shoulder x-ray which I interpreted as being negative for acute bony injury Was pt. sent in by a medical professional or institution (, PA, [employer], urgent care, hospital, or halfway...) When possible be specific @ -[No] Did you speak to anyone other than the patient for history (EMS, parent, family, police, friend...)? What history was obtained from this source @ -[No] Did you review nursing and triage notes (agree or disagree)? Why? @ -[I reviewed and agree with nursing and triage notes] Were old charts reviewed (outside hosp., previous admission, EMS record, old EKG, old radiological studies, urgent care reports/EKG's, halfway records)? Report findings @ -[No old charts were reviewed] Differential Diagnosis (chest pain, altered mental status, abdominal pain women, abdominal pain men, vaginal bleeding, weakness, fever, dyspnea, syncope, headache, dizziness, GI bleed, back pain, seizure, CVA, palpatations, mental health, musculoskeletal)? @ -[Differential Dyspnea: Coronary syndrome, arrhythmia, tamponade, asthma, COPD, pulmonary embolism, pneumonia, pneumothorax, pulmonary effusion, anaphylaxis, diabetic ketoacidosis, flailed chest, pulmonary contusion, diaphragmatic rupture, anemia, neuromuscular, this is not meant to be an all-inclusive list. EKG interpreted by me (3pts min.). @ -[As above] X-rays interpreted by me (1pt min.). @ -[As above CT interpreted by me (1pt min.). @ -[None done] U/S interpreted by me (1pt. min.). @ -[None done] What testing was considered but not performed or refused? (CT, X-rays, U/S, labs)? Why? @ -[None] What meds were considered but not given or refused? Why? @ -[None] Did you discuss the management of the patient with other professionals (professionals i.e. , PA, [employer], lab, RT, psych nurse, social service assistant, radio program director, teacher, commercial credit officer, watch caser)? Give summary @ -[No] Was smoking cessation discussed for >3mins.? @ -[No] Was critical care preformed (if so, how long)? @ -[No] Were there social determinants of health that impacted care today? How? (Homelessness, low income, unemployed, alcoholism, drug addiction, transportation, low edu. Level, literacy, decrease access to med. care, detention, rehab)? @ -[No] Was there de-escalation of care discussed even if they declined (Discuss DNR or withdrawal of care, Hospice)? DNR status @ -[No] What co-morbidities impacted this encounter? (DM, HTN, Smoking, COPD, CAD, Cancer, CVA, ARF, Chemo, Hep., AIDS, mental health diagnosis, sleep apnea, morbid obesity)? @ -[None] Was patient admitted / discharged? Hospital course, mention meds given and route, prescriptions, significant lab abnormalities, going to OR and other pertinent info. @ -[The patient is seen and evaluated. She is having improvement already related to her symptoms. The workup here is unremarkable and she was feeling better on reevaluation and didn't want to go home. Discussed no further use of sympathomimetics. Discussed appropriate further care and follow-up as well as return parameters Undiagnosed new problem with uncertain prognosis? @ -[No] Drug Therapy requiring intensive monitoring for toxicity (Heparin, Nitro, Insuli n, Cardizem)? @ -[No] Were any procedures done? @ -[No] Diagnosis/symptom? @ -Acute dyspnea, secondary to sympathomimetic use Acute, or Chronic, or Acute on Chronic? @ -[Acute Uncomplicated (without systemic symptoms) or Complicated (systemic symptoms)? @ -[Uncomplicated Side effects of treatment? @ -[No] Exacerbation, Progression, or Severe Exacerbation? @ -[No] Poses a threat to life or bodily function? How? (Chest pain, [place], [place], pneumonia, PE, COPD, DKA, ARF, appy, cholecystitis, CVA, Diverticulitis, Homicidal, Suicidal, threat to staff... and all critical care pts) @ -[No] - Lab Data Result diagrams: 06/07/23 14:13 06/07/23 14:13 Lab Results 06/07/23 06/07/23 06/07/23 Range/Units 14:13 14:13 14:13 WBC 8.5 (3.8-10.6) k/uL RBC 4.29 (3.80-5.40) m/uL Hgb 12.5 (11.4-16.0) gm/dL Hct 36.7 (34.0-46.0) % MCV 85.4 (80.0-100.0) fL MCH 29.1 (25.0-35.0) pg MCHC 34.1 (31.0-37.0) g/dL RDW 13.5 (11.5-15.5) % Plt Count 355 (150-450) k/uL MPV 6.8 Neutrophils % 70 % Lymphocytes % 22 % Monocytes % 5 % Eosinophils % 1 % Basophils % 0 % Neutrophils # 6.0 (1.3-7.7) k/uL Lymphocytes # 1.9 (1.0-4.8) k/uL Monocytes # 0.5 (0-1.0) k/uL Eosinophils # 0.1 (0-0.7) k/uL Basophils # 0.0 (0-0.2) k/uL Sodium 138 (137-145) mmol/L Potassium 3.5 (3.5-5.1) mmol/L Chloride 110 H (98-107) mmol/L Carbon Dioxide 20 L (22-30) mmol/L Anion Gap 8 mmol/L BUN 7 (7-17) mg/dL Creatinine 0.56 (0.52-1.04) mg/dL Est GFR (CKD-EPI)AfAm >90 (>60 ml/min/1.73 sqM) Est GFR (CKD-EPI)NonAf >90 (>60 ml/min/1.73 sqM) Glucose 95 (74-99) mg/dL Calcium 9.5 (8.4-10.2) mg/dL Magnesium 2.0 (1.6-2.3) mg/dL Total Bilirubin 0.6 (0.2-1.3) mg/dL AST 36 (14-36) U/L ALT 32 (4-34) U/L Alkaline Phosphatase 70 (38-126) U/L Troponin I <0.012 (0.000-0.034) ng/mL Total Protein 7.0 (6.3-8.2) g/dL Albumin 4.3 (3.5-5.0) g/dL TSH (0.465-4.680) mIU/L 06/07/23 Range/Units 21:57 WBC (3.8-10.6) k/uL RBC (3.80-5.40) m/uL Hgb (11.4-16.0) gm/dL Hct (34.0-46.0) % MCV (80.0-100.0) fL MCH (25.0-35.0) pg MCHC (31.0-37.0) g/dL RDW (11.5-15.5) % Plt Count (150-450) k/uL MPV Neutrophils % % Lymphocytes % % Monocytes % % Eosinophils % % Basophils % % Neutrophils # (1.3-7.7) k/uL Lymphocytes # (1.0-4.8) k/uL Monocytes # (0-1.0) k/uL Eosinophils # (0-0.7) k/uL Basophils # (0-0.2) k/uL Sodium (137-145) mmol/L Potassium (3.5-5.1) mmol/L Chloride (98-107) mmol/L Carbon Dioxide (22-30) mmol/L Anion Gap mmol/L BUN (7-17) mg/dL Creatinine (0.52-1.04) mg/dL Est GFR (CKD-EPI)AfAm (>60 ml/min/1.73 sqM) Est GFR (CKD-EPI)NonAf (>60 ml/min/1.73 sqM) Glucose (74-99) mg/dL Calcium (8.4-10.2) mg/dL Magnesium (1.6-2.3) mg/dL Total Bilirubin (0.2-1.3) mg/dL AST (14-36) U/L ALT (4-34) U/L Alkaline Phosphatase (38-126) U/L Troponin I (0.000-0.034) ng/mL Total Protein (6.3-8.2) g/dL Albumin (3.5-5.0) g/dL TSH 3.230 (0.465-4.680) mIU/L Disposition Clinical Impression: Dyspnea, Sympathomimetic adverse reaction Disposition: HOME SELF-CARE Condition: Good Instructions (If sedation given, give patient instructions): Dyspnea (ED) Is patient prescribed a controlled substance at d/c from ED?: No Referrals: Liborio Bryan Jr, [Primary Care Provider] - 1-2 days
[2023-06-07 22:25] VITALS: BP 138/76; PULSE 75; RESP 18; TEMP 98
== END 2023-06-07 22:25 | disposition home or self-care (01) ==
LOC: EC 13:53
DX: R06.00 Dyspnea, unspecified (principal); T44.1X5A Adverse effect of other parasympathomimetics [cholinergics], initial encounter; F17.290 Nicotine dependence, other tobacco product, uncomplicated; F12.90 Cannabis use, unspecified, uncomplicated; Z88.0 Allergy status to penicillin; Z91.041 Radiographic dye allergy status
CPT/HCPCS: 36415; 93005; 80053; 83735; 84443; 84484; 85025; 73030; 71046; 99285; 96374; 96361; J2060

== ENCOUNTER 2024-06-21 00:25 | Emergency (ER) | payer OTHER ==
--- NOTE | 2024-06-21 01:10 | ED ---
Abdominal Pain HPI - General Chief Complaint: Abdominal Pain Stated Complaint: ABD Pain Time Seen by Provider: 06/21/24 00:49 Source: patient Mode of arrival: ambulatory Limitations: no limitations - History of Present Illness Initial Comments: 28-year-old female presenting with chief complaint of abdominal pain. Patient has had progressively worsening right lower quadrant pain for a few days. She admits to nausea with no vomiting. Denies any dysuria, hematuria, urgency, frequency. No vaginal bleeding or abnormal discharge. No fevers or chills. No diarrhea. - Related Data Home Medications Medication Instructions Recorded Confirmed Glucosamine/Chondro Silvestre A [Cosamin 1 tab PO BID 06/07/23 06/07/23 Ds Tablet] Allergies Allergy/AdvReac Type Severity Reaction Status Date / Time amoxicillin AdvReac yeast Verified 06/21/24 00:28 infection purple dye Allergy Rash/Hives Uncoded 06/21/24 00:28 Review of Systems ROS Statement: Those systems with pertinent positive or pertinent negative responses have been documented in the HPI. ROS Other: All systems not noted in ROS Statement are negative. 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 Absent: meningismus Respiratory exam: Absent: respiratory distress Cardiovascular Exam: Present: regular rate GI/Abdominal exam: Present: soft, tenderness. Absent: distended, guarding, rebound, rigid Neurological exam: Present: alert, oriented X3 Psychiatric exam: Present: normal affect, normal mood Skin exam: Present: warm, dry Course Vital Signs 06/21/24 06/21/24 06/21/24 00:27 04:09 04:39 Temperature 98.7 F 98.1 F Pulse Rate 75 72 76 Respiratory 18 16 20 Rate Blood Pressure 138/87 120/69 126/74 O2 Sat by Pulse 100 98 98 Oximetry Medical Decision Making - Medical Decision Making Was pt. sent in by a medical professional or institution ([facility], [facility], urgent care, hospital, or snf...) When possible be specific @ -No Did you speak to anyone other than the patient for history (EMS, parent, family, police, friend...)? What history was obtained from this source @ -No Did you review nursing and triage notes (agree or disagree)? Why? @ -I reviewed and agree with nursing and triage notes Were old charts reviewed (outside hosp., previous admission, EMS record, old EKG, old radiological studies, urgent care reports/EKG's, snf records)? Report findings @ -No old charts were reviewed Differential Diagnosis (chest pain, altered mental status, abdominal pain women, abdominal pain men, vaginal bleeding, weakness, fever, dyspnea, syncope, headache, dizziness, GI bleed, back pain, seizure, CVA, palpatations, mental h ealth, musculoskeletal)? @ -MDM Differential Abdominal Pain Women: Appendicitis, Cholecystitis, diverticulosis, ischemic bowel, pancreatitis, hepatitis, UTI, gastroenteritis, AAA, incarcerated hernia, bowel obstruction, constipation, inflammatory bowel, hepatitis, peptic ulcer disease, splenic inf arction, perforated viscus, vulvitis, ovarian torsion, PID, kidney stone, placenta abruption... This is not meant to be an all-inclusive list EKG interpreted by me (3pts min.). @ -As above X-rays interpreted by me (1pt min.). @ -None done CT interpreted by me (1pt min.). @ -CT shows no acute findings in the abdomen or pelvis U/S interpreted by me (1pt. min.). @ -None done What testing was considered but not performed or refused? (CT, X-rays, U/S, labs)? Why? @ -None What meds were considered but not given or refused? Why? @ -None Did you discuss the management of the patient with other professionals (professionals i.e. [facility], [facility] [facility], lab, RT, psych nurse, nursing home social worker, floor technician, teacher, morals squad police officer, transplant case manager)? Give summary @ -No Was smoking cessation discussed for >3mins.? @ -No Was critical care preformed (if so, how long)? @ -No Were there social determinants of health that impacted care today? How? (Homelessness, low income, unemployed, alcoholism, drug addiction, tra nsportation, low edu. Level, literacy, decrease access to med. care, custodial, rehab)? @ -No Was there de-escalation of care discussed even if they declined (Discuss DNR or withdrawal of care, Hospice)? DNR status @ -No What co-morbidities impacted this encounter? (DM, HTN, Smoking, COPD, CAD, Cancer, CVA, ARF, Chemo, Hep., AIDS, mental health diagnosis, sleep apnea, morbid obesity)? @ -None Was patient admitted / discharged? Hospital course, mention meds given and route, prescriptions, significant lab abnormalities, going to OR and other pertinent info. @ -28-year-old female presenting with chief complaint of right lower quadrant pain. History and physical exam are conducted. Lab work shows no leukocytosis or anemia. Mild transaminitis. Urine shows signs of contamination with [address] shows no acute process. On reassessment patient is resting comfortably showing no acute signs of distress. She is educated on today's findings and discharged home. Follow-up with PCP. Report back to ER with any new or worsening symptoms. Discussed return parameters and answered all questions. Patient conveyed verbal understanding and agreed to the plan. I discussed this case in detail with my attending Dr. Katz Undiagnosed new problem with uncertain prognosis? @ -No Drug Therapy requiring intensive monitoring for toxicity (Heparin, Nitro, Insulin, Cardizem)? @ -No Were any procedures done? @ -No Diagnosis/symptom? @ -Abdominal pain Acute, or Chronic, or Acute on Chronic? @ -Acute Uncomplicated (without systemic symptoms) or Complicated (systemic symptoms)? @ -Uncomplicated Side effects of treatment? @ -No Exacerbation, Progression, or Severe Exacerbation? @ -No Poses a threat to life or bodily function? How? (Chest pain, USA, CA, pneumonia, PE, COPD, DKA, ARF, appy, cholecystitis, CVA, Diverticulitis, Homicidal, Suicidal, threat to staff... and all critical care pts) @ -Unlikely - Lab Data Result diagrams: 06/21/24 01:19 06/21/24 01:19 Lab Results 06/21/24 06/21/24 06/21/24 Range/Units 01:19 01:19 01:19 WBC 7.1 (3.8-10.6) k/uL RBC 4.36 (3.80-5.40) m/uL Hgb 12.4 (11.4-16.0) gm/dL Hct 37.5 (34.0-46.0) % MCV 85.9 (80.0-100.0) fL MCH 28.4 (25.0-35.0) pg MCHC 33.0 (31.0-37.0) g/dL RDW 13.4 (11.5-15.5) % Plt Count 342 (150-450) k/uL MPV 6.6 Neutrophils % 67 % Lymphocytes % 24 % Monocytes % 6 % Eosinophils % 1 % Basophils % 0 % Neutrophils # 4.8 (1.3-7.7) k/uL Lymphocytes # 1.7 (1.0-4.8) k/uL Monocytes # 0.4 (0-1.0) k/uL Eosinophils # 0.1 (0-0.7) k/uL Basophils # 0.0 (0-0.2) k/uL Sodium (137-145) mmol/L Potassium (3.5-5.1) mmol/L Chloride (98-107) mmol/L Carbon Dioxide (22-30) mmol/L Anion Gap mmol/L BUN (7-17) mg/dL Creatinine (0.52-1.04) mg/dL Est GFR (CKD-EPI)AfAm (>60 ml/min/1.73 sqM) Est GFR (CKD-EPI)NonAf (>60 ml/min/1.73 sqM) Glucose (74-99) mg/dL Plasma Lactic Acid Martinez (0.7-2.0) mmol/L Calcium (8.4-10.2) mg/dL Total Bilirubin (0.2-1.3) mg/dL AST (14-36) U/L ALT (4-34) U/L Alkaline Phosphatase (38-126) U/L Total Protein (6.3-8.2) g/dL Albumin (3.5-5.0) g/dL Amylase (30-110) U/L Lipase (23-300) U/L Urine Color Light Yellow Urine Appearance Cloudy H (Clear) Urine pH 6.0 (5.0-8.0) Ur Specific [place] 1.019 (1.001-1.035) Urine Protein Negative (Negative) Urine Glucose (UA) Negative (Negative) Urine Ketones Negative (Negative) Urine Blood Negative (Negative) Urine Nitrite Negative (Negative) Urine Bilirubin Negative (Negative) Urine Urobilinogen <2.0 (<2.0) mg/dL Ur Leukocyte Esterase Moderate H (Negative) Urine RBC 2 (0-5) /hpf Urine WBC 16 H (0-5) /hpf Ur Squamous Epith Cells 25 H (0-4) /hpf Urine Bacteria Occasional H (None) /hpf Urine Mucus Few H (None) /hpf Urine HCG, Qual Not Detected (Not Detectd) 06/21/24 06/21/24 Range/Units 01:19 01:19 WBC (3.8-10.6) k/uL RBC (3.80-5.40) m/uL Hgb (11.4-16.0) gm/dL Hct (34.0-46.0) % MCV (80.0-100.0) fL MCH (25.0-35.0) pg MCHC (31.0-37.0) g/dL RDW (11.5-15.5) % Plt Count (150-450) k/uL MPV Neutrophils % % Lymphocytes % % Monocytes % % Eosinophils % % Basophils % % Neutrophils # (1.3-7.7) k/uL Lymphocytes # (1.0-4.8) k/uL Monocytes # (0-1.0) k/uL Eosinophils # (0-0.7) k/uL Basophils # (0-0.2) k/uL Sodium 137 (137-145) mmol/L Potassium 3.7 (3.5-5.1) mmol/L Chloride 107 (98-107) mmol/L Carbon Dioxide 25 (22-30) mmol/L Anion Gap 5 mmol/L BUN 9 (7-17) mg/dL Creatinine 0.78 (0.52-1.04) mg/dL Est GFR (CKD-EPI)AfAm >90 (>60 ml/min/1.73 sqM) Est GFR (CKD-EPI)NonAf >90 (>60 ml/min/1.73 sqM) Glucose 99 (74-99) mg/dL Plasma Lactic Acid Martinez 0.6 L (0.7-2.0) mmol/L Calcium 9.3 (8.4-10.2) mg/dL Total Bilirubin 0.4 (0.2-1.3) mg/dL AST 90 H (14-36) U/L ALT 70 H (4-34) U/L Alkaline Phosphatase 59 (38-126) U/L Total Protein 6.4 (6.3-8.2) g/dL Albumin 4.1 (3.5-5.0) g/dL Amylase 35 (30-110) U/L Lipase 22 L (23-300) U/L Urine Color Urine Appearance (Clear) Urine pH (5.0-8.0) Ur Specific [place] (1.001-1.035) Urine Protein (Negative) Urine Glucose (UA) (Negative) Urine Ketones (Negative) Urine Blood (Negative) Urine Nitrite (Negative) Urine Bilirubin (Negative) Urine Urobilinogen (<2.0) mg/dL Ur Leukocyte Esterase (Negative) Urine RBC (0-5) /hpf Urine WBC (0-5) /hpf Ur Squamous Epith Cells (0-4) /hpf Urine Bacteria (None) /hpf Urine Mucus (None) /hpf Urine HCG, Qual (Not Detectd) Disposition Clinical Impression: Abdominal pain Disposition: HOME SELF-CARE Condition: Good Instructions (If sedation given, give patient instructions): Abdominal Pain (ED) Additional Instructions: Follow-up with your PCP. Report back to ER with any new or worsening symptoms. Is patient prescribed a controlled substance at d/c from ED?: No Referrals: Liborio Bryan Jr, [Primary Care Provider] - 1-2 days Time of Disposition: 03:58
[2024-06-21 01:41] LABS: Appearance,Urine Cloudy (Clear); Bacteria,Urine Occasional /hpf; Bilirubin,Urine Negative (Negative); Blood,Urine Negative (Negative); Color,Urine Light Yellow; Glucose,Urine (UA) Negative (Negative); Ketones,Urine Negative (Negative); Leukocyte Esterase,Urine Moderate (Negative); Mucus,Urine Few /hpf; Nitrite,Urine Negative (Negative); Protein,Urine Negative (Negative); RBC,Urine 2 /hpf (0-5); Specific Gravity,Urine 1.019 (1.001-1.035); Squamous Epithelial Cell,Urine 25 /hpf (0-4); Urobilinogen,Urine <2.0 mg/dL (<2.0); WBC,Urine 16 /hpf (0-5)
[2024-06-21 01:42] LABS: Basophils % (A) 0 %; Eosinophils # (A) 0.1 k/uL (0-0.7); Eosinophils % (A) 1 %; HCT 37.5 % (34.0-46.0); HGB 12.4 gm/dL (11.4-16.0); Lymphocytes # (A) 1.7 k/uL (1.0-4.8); Lymphocytes % (A) 24 %; MCH 28.4 pg (25.0-35.0); MCV 85.9 fL (80.0-100.0); Mean Platelet Volume 6.6; Monocytes # (A) 0.4 k/uL (0-1.0); Monocytes % (A) 6 %; Neutrophils # (A) 4.8 k/uL (1.3-7.7); Neutrophils % (A) 67 %; Platelet Count 342 k/uL (150-450); RBC 4.36 m/uL (3.80-5.40); RDW 13.4 % (11.5-15.5); WBC 7.1 k/uL (3.8-10.6)
[2024-06-21 01:57] LABS: ALT 70 U/L (4-34); AST 90 U/L (14-36); African American GFR (CKD) >90 (>60 ml/min/1.73 sqM); Albumin 4.1 g/dL (3.5-5.0); Alkaline Phosphatase 59 U/L (38-126); Amylase 35 U/L (30-110); Anion Gap 5 mmol/L; Blood Urea Nitrogen 9 mg/dL (7-17); Calcium 9.3 mg/dL (8.4-10.2); Carbon Dioxide 25 mmol/L (22-30); Chloride 107 mmol/L (98-107); Glucose 99 mg/dL (74-99); Lipase 22 U/L (23-300); Non-African American GFR(CKD) >90 (>60 ml/min/1.73 sqM); Potassium 3.7 mmol/L (3.5-5.1); Sodium 137 mmol/L (137-145); Total Bilirubin 0.4 mg/dL (0.2-1.3); Total Protein 6.4 g/dL (6.3-8.2)
[2024-06-21] MEDS: KETOROLAC 15 MG/ML 1 ML VIAL IVP STA (02:49)
[2024-06-21] MEDS: ONDANSETRON 4 MG/2 ML VIAL IVP STA (02:52)
--- NOTE | 2024-06-21 03:42 | CT ---
EXAM: CT Abdomen and Pelvis With Intravenous Contrast CLINICAL HISTORY: ITS.REASON CT Reason: RLQ abdominal pain TECHNIQUE: Axial computed tomography images of the abdomen and pelvis with intravenous contrast. CTDI is 27.1 mGy and DLP is 1986.7 mGy-cm. This CT exam was performed using one or more of the following dose reduction techniques: automated exposure control, adjustment of the mA and/or kV according to patient size, and/or use of iterative reconstruction technique. COMPARISON: No relevant prior studies available. FINDINGS: Lung bases: Unremarkable. No mass. No consolidation. ABDOMEN: Liver: Unremarkable. No mass. Gallbladder and bile ducts: Unremarkable. No calcified stones. No ductal dilation. Pancreas: Unremarkable. No mass. No ductal dilation. Spleen: Unremarkable. No splenomegaly. Adrenals: Unremarkable. No mass. Kidneys and ureters: Unremarkable. No solid mass. No hydronephrosis. Stomach and bowel: Diverticulosis, without acute diverticulitis. No small bowel obstruction. No free intraperitoneal air. PELVIS: Appendix: No findings to suggest acute appendicitis. Bladder: Unremarkable. No mass. Reproductive: Unremarkable as visualized. ABDOMEN and PELVIS: Intraperitoneal space: Unremarkable. No free air. No significant fluid collection. Bones/joints: No acute fracture. No dislocation. Soft tissues: Unremarkable. Vasculature: Unremarkable. No abdominal aortic aneurysm. Lymph nodes: Unremarkable. No enlarged lymph nodes. IMPRESSION: No acute findings in the abdomen or pelvis.
[2024-06-21 04:09] VITALS: TEMP 98.1
[2024-06-21 04:42] VITALS: BP 126/74; PULSE 76; RESP 20
== END 2024-06-21 04:42 | disposition home or self-care (01) ==
LOC: EC 00:25
DX: R10.31 Right lower quadrant pain (principal); F17.290 Nicotine dependence, other tobacco product, uncomplicated; Z88.0 Allergy status to penicillin; Z91.018 Allergy to other foods
CPT/HCPCS: 36415; 80053; 82150; 83605; 83690; 85025; 81001; 81025; 87086; 74177; 99284; 96374; 96375; J2405; J1885; Q9967

== ENCOUNTER → 2025-06-28 | Outpatient (CLI) | payer BC, OTHER ==
--- NOTE | 2025-06-28 08:22 | US ---
EXAMINATION TYPE: US abdomen limited DATE OF EXAM: 06/28/2025 COMPARISON: CT abdomen and pelvis 06/21/2024 CLINICAL INDICATION: Female, 29 years old with history of R10.11 RUQ ABD PAIN; abd pain TECHNIQUE: Grayscale and color Doppler imaging of the right upper quadrant was performed. FINDINGS: EXAM MEASUREMENTS: Liver Length: 18.0 cm Gallbladder Wall: 0.2 cm CBD: 0.6 cm Right Kidney: 10.9 x 5.2 x 4.9 cm Pancreas: wnl Liver: wnl Gallbladder: wnl Evidence for sonographic Keen's sign: no CBD: wnl Right Kidney: wnl Pancreas appears unremarkable. Liver is within normal limits. No focal lesion. Gallbladder demonstrat es no stones, wall thickening or surrounding fluid. Negative sonographic Keen's sign. Common bile d uct is within normal limits. Right kidney demonstrates no hydronephrosis, shadowing calculus or solid mass. IMPRESSION: Unremarkable right upper quadrant ultrasound. [facility], , 06/28/2025 8:20 AM
== END | disposition home or self-care (01) ==
LOC: RADUSWWP 07:26
PROVIDERS: ATTEND Family Medicine
DX: R10.11 Right upper quadrant pain (principal)
CPT/HCPCS: 76705